=== PATIENT | female | born 1990 ===

== ENCOUNTER 2019-06-12 17:55 | Inpatient (IN) | payer BC, OTHER ==
[2019-06-12] MEDS ORDERED: BUTORPHANOL TARTRATE 1 MG/ML VIAL IVPB ONE (19:01)
[2019-06-12] MEDS ORDERED: PROMETHAZINE HCL 25 MG/1 ML VIAL IVPUSH ONE (19:01)
--- NOTE | 2019-06-12 19:13 | HP ---
Past Medical History - Primary Care Physician PCP:: Lillian Reyes - Admission Chief Complaint: 29yrs , 38.6/7 weeks iup onset LP since 4.00pm strong & regular. she had onset of UC since 8,00AM she went to [facility] L&D where she was supposed to be delievered she was sent home after evaluation due to very early labor ( 1cm dilatation ) . no c/o leaking ,c/o light dark color bleeding History of Present Illness: pnc at [facility],affliated PMD wt gain approx 40 lbs course uneventful . pt declines h/o infection requested chart Chart received reviewed :12/09/18 panel : Apos, , Rubella immune , Varicella immune, measles immune,Hbsag neg , Rpr nr, Hiv nrr, Mumps neg , Varicella zoster neg, Toxoplasmosis igg neg, Iggm neg, Parvovirus B19 Igg pos , Igm neg , TFT , wnl ( tsh, free t4 , freet3 wnl, total T4 elevated, tota T3 uptake lo normal for pregn , random Gl 61, pp nilm, gc/ct neg, Trich neg 05/29/19 : h/h10'4/33.3, Hiv nr, Gbs pos History Source: Patient, Medical Record Limitations to Obtaining History: No Limitations - Past Medical History [employer] CHEMIST: No: Migraine, Seizure Cardiovascular: No: HTN, Murmur Pulmonary: No: Asthma Gastrointestinal: Yes: Constipation. No: GERD Hepatobiliary: No: Hepatitis B Renal/: No: UTI ...: 3 ...Para: 2 (G1 07/27/06nsvd 7' [facility],G2 04/11/09 -8' [facility] ) ...Term: 2 ...LMP: 09/12/18 ... Weeks Gestation by Dates: 38.6 ...EDC by Dates: 06/21/19 ...EDC by Sono: 06/21/19 Heme/Onc: No: Anemia Infectious Disease: Yes: Other (declines) Psych: Yes: Other (declines) Endocrine: Yes: Other (declines) - Past Surgical History Past Surgical History: Yes: None Hx Myomectomy: No Hx Transabdominal Cerclage: No - Alcohol/Substance Use History of Substance Use: reports: None Home Medications - Allergies Allergies/Adverse Reactions: Allergies Allergy/AdvReac Type Severity Reaction Status Date / Time No Known Allergies Allergy Verified 06/12/19 18:50 - Home Medications Home Medications: Ambulatory Orders Prenat 115/Iron Fum/Folic/Dss [ 19 Tablet] 1 each PO DAILY 06/12/19 Physical Exam - Maternity Vital Signs: Selected Entries 06/12/19 18:51 Weight 181 lb Selected Entries 06/12/19 20:04 Temperature 99.2 F Pulse Rate 107 H Respiratory 20 Rate Constitutional: Yes: Well Nourished Eyes: Yes: WNL HENT: Yes: WNL, Normocephalic Neck: Yes: WNL Cardiovascular: Yes: WNL Lungs: Clear to auscultation Breast(s): Yes: WNL - Abdominal Exam/OB Fundal Height: 38 Number of Fetuses: Single Presentation: Vertex Contractions: Yes Regularity: Irregular Intensity: Moderate Monitor Mode: External Heart Rate (range): 150 Heart Rate Location: [facility] Category: I Accelerations: Uniform Decelerations: None - Vaginal Exam/OB Vaginal Bleediing: Bloody Show Speculum Exam: No Dilatation (cm): 3-4 cm Effacement (%): 90 Amniotic Membrane Status: Bulging Presentation: Vertex/Position (exam at 6.30 PM) Station: -2 - Physical Exam Musculoskeletal: Yes: WNL Extremities: Yes: WNL. No: Calf Tenderness Edema: Yes Edema: LLE: 1+, RLE: 1+ Integumentary: Yes: Tattoos Deep Tendon Reflex Grade: Normal +2 ...Motor Strength: WNL Psychiatric: Yes: WNL, Alert, Oriented - Labs Lab Results: Laboratory Tests 06/12/19 06/12/19 06/12/19 19:50 19:50 19:50 WBC 10.6 H Hgb 11.6 Hct 34.7 Plt Count 206 PT with INR 11.60 INR 0.98 PTT (Actin FS) 29.1 Sodium 137 Potassium 4.0 Chloride 107 Carbon Dioxide 24 BUN 9.5 Creatinine 0.6 Random Glucose 89 Calcium 8.9 HIV 1&2 Antibody Screen HIV P24 Antigen Blood Type Antibody Screen 06/12/19 06/12/19 19:50 20:45 WBC Hgb Hct Plt Count PT with INR INR PTT (Actin FS) Sodium Potassium Chloride Carbon Dioxide BUN Creatinine Random Glucose Calcium HIV 1&2 Antibody Screen Negative HIV P24 Antigen Negative Blood Type A POSITIVE Antibody Screen Negative Problem List - Problems (1) with 38 completed weeks gestation Code(s): Z3A.38 - 38 WEEKS GESTATION OF (2) Labor established Code(s): QQN2616 - (3) with care elsewhere Code(s): Z34.90 - ENCNTR FOR SUPRVSN OF NORMAL , UNSP, UNSP TRIMESTER (4) Positive GBS test Code(s): B95.1 - STREPTOCOCCUS, GROUP B, CAUSING DISEASES CLASSD ELSWHR Assessment/Plan 29 yrs , 38.6/7 weeks iup in labor pnc somewhere GBS unknown, waiting for chart , GBS pos rx iv Ampicillin prophylaxis requests epidural for labor analgesia anticipate vaginal delivery
[2019-06-12] MEDS ORDERED: DEXTROSE 5%-LACTATED RINGERS 1,000 ML IV SCH (19:15)
[2019-06-12] MEDS ORDERED: ELECTROLYTE-148 SOLN 1,000 ML IV SCH (19:45)
[2019-06-12 20:22] VITALS: BMI 33.0
[2019-06-12 20:34] LABS: BASO % 0.1 % (0-2.0); EOS % 0.4 % (0-4.5); HEMATOCRIT 34.7 % (32.4-45.2); HEMOGLOBIN 11.6 GM/dL (10.7-15.3); LYMPH % 13.7 % (8-40); MCH 29.2 pg (25.7-33.7); MCHC 33.4 g/dl (32.0-36.0); MEAN CELL VOLUME 87.4 fl (80-96); MEAN PLT VOLUME 10.3 fl (7.5-11.1); MONO % 6.6 % (3.8-10.2); NEUT % 79.2 % (42.8-82.8); PLATELET COUNT 206 K/MM3 (134-434); RBC 3.97 M/mm3 (3.60-5.2); RDW 15.1 % (11.6-15.6); WHITE BLOOD COUNT 10.6 K/mm3 (4.0-10.0)
[2019-06-12 20:42] LABS: BLOOD UREA NITROGEN 9.5 mg/dL (7-18); CALCIUM 8.9 mg/dL (8.5-10.1); CREATININE 0.6 mg/dL (0.55-1.3)
[2019-06-12] MEDS ORDERED: AMPICILLIN SODIUM 2 GM VIAL ONE (20:49)
[2019-06-12 20:54] LABS: INR 0.98 (0.83-1.09); PROTHROMBIN TIME (PATIENT) 11.6 SEC (9.7-13.0)
[2019-06-12 20:56] LABS: ACTIVATED PTT 29.1 SECONDS (25.2-36.5)
[2019-06-12] MEDS ORDERED: NALOXONE HCL 0.4 MG/ML VIAL IVPUSH PRN (22:10)
[2019-06-12] MEDS ORDERED: LIDO 2%/EPI 1:200000 PRESRVFRE (20 ML SDVIAL) ONE (22:13)
[2019-06-12] MEDS ORDERED: FENTANYL/BUPIVACAINE/NS/PF - PCEA - 50 ML DISP.SYRIN EP SCH (22:15)
[2019-06-12] MEDS ORDERED: FENTANYL/BUPIVACAINE/NS/PF - PCEA - 50 ML DISP.SYRIN EP ONE (22:26)
[2019-06-12] MEDS ORDERED: AMPICILLIN SODIUM 1 GM VIAL ONE (23:54)
[2019-06-13] MEDS ORDERED: OXYTOCIN 20 UNITS in 0.9% NS 20 UNIT/1,000 ML INFUS.BAG IV ONE ×2 (00:11→03:39)
[2019-06-13] MEDS ORDERED: LIDOCAINE HCL 1% PRESERVATIVE FREE - 30ML VIAL ONE (00:11)
--- NOTE | 2019-06-13 01:29 | PN ---
Delivery - Delivery Vaginal Delivery: No Problems, Spontaneous (, vx,rop position, terminal light meconium noted,shoulders delievered without difficulty. cord segment cut for cord gas cord around bodyx1 noted. Trivascular cord.. vaginal 1st degree laceration noted with chr catgut #2/0 . , meu done ut intact & empty.bladder catheterized & emptied 300 ml urine . 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
[2019-06-13] MEDS ORDERED: BENZOCAINE 28 GM HEMORRHOIDAL OINTMENT TP PRN (01:47)
[2019-06-13] MEDS ORDERED: WITCH HAZEL 50% (TUCKS) 40 PAD/JAR PAD TP PRN (01:47)
[2019-06-13] MEDS ORDERED: BISACODYL 10 MG SUPP.RECT RC PRN (01:47)
[2019-06-13] MEDS ORDERED: METHYLERGONOVINE MALEATE 0.2 MG/1 ML AMP IM PRN (01:47)
[2019-06-13] MEDS ORDERED: BENZOCAINE 20% 57 GM BOTTLE TP PRN (01:47)
[2019-06-13] MEDS ORDERED: oxyCODONE HCL 5 MG TABLET PO PRN (01:47)
[2019-06-13] MEDS ORDERED: OXYTOCIN 20 UNITS in 0.9% NS 20 UNIT/1,000 ML INFUS.BAG IV SCH (02:00)
[2019-06-13] MEDS ORDERED: IBUPROFEN 600 MG TABLET (FP) PO ONE ×2 (03:00→07:20)
[2019-06-13] MEDS: ACETAMINOPHEN 325 MG TABLET (FP) PO PRN ×3 (03:00→21:34)
[2019-06-13] MEDS: IBUPROFEN 600 MG TABLET (FP) PO PRN ×3 (03:00→21:33)
[2019-06-13] MEDS ORDERED: ACETAMINOPHEN 325 MG TABLET (FP) ONE ×2 (03:00→07:20)
[2019-06-13] MEDS: FERROUS SO4 325 MG TABLET (FP) PO SCH ×2 (08:00→17:39)
[2019-06-13] MEDS: PRENATAL VITAMINS W/ FOLIC ACID TABLET (FP) PO SCH (09:47)
--- NOTE | 2019-06-14 06:59 | PN ---
Post Progress Note - Subjective Subjective: Pain controlled. Lochia less than menses. No fevers/chills. Ambulating. Voiding freely Type of Delivery: Vital Signs: Vital Signs Temperature 98.0 F 06/13/19 22:00 Pulse Rate 83 06/13/19 22:00 Respiratory Rate 18 06/13/19 22:00 Blood Pressure 115/65 06/13/19 22:00 O2 Sat by Pulse Oximetry (%) 99 06/13/19 02:30 Uterus: Yes: Fundus below umbilicus Abdomen/GI: Yes: Abdomen soft, Passing flatus, Tolerating PO Lochia: Yes: Rubra Lochia, amount: Small Extremities: Yes: Calves non-tender Perineum: Yes: Laceration Activity: Ambulating - Labs Labs: CBC WBC 10.6 K/mm3 (4.0-10.0) H 06/12/19 19:50 RBC 3.97 M/mm3 (3.60-5.2) 06/12/19 19:50 Hgb 11.6 GM/dL (10.7-15.3) 06/12/19 19:50 Hct 34.7 % (32.4-45.2) 06/12/19 19:50 MCV 87.4 fl (80-96) 06/12/19 19:50 MCH 29.2 pg (25.7-33.7) 06/12/19 19:50 MCHC 33.4 g/dl (32.0-36.0) 06/12/19 19:50 RDW 15.1 % (11.6-15.6) 06/12/19 19:50 Plt Count 206 K/MM3 (134-434) 06/12/19 19:50 MPV 10.3 fl (7.5-11.1) 06/12/19 19:50 Absolute Neuts (auto) 8.4 K/mm3 (1.5-8.0) H 06/12/19 19:50 Neutrophils % 79.2 % (42.8-82.8) 06/12/19 19:50 Lymphocytes % 13.7 % (8-40) 06/12/19 19:50 Monocytes % 6.6 % (3.8-10.2) 06/12/19 19:50 Eosinophils % 0.4 % (0-4.5) 06/12/19 19:50 Basophils % 0.1 % (0-2.0) 06/12/19 19:50 Nucleated RBC % 0 % (0-0) 06/12/19 19:50 Assessment/Plan 29yo s/p , PPD#1 Routine PP care PO pain control Labs pending Anticipate d/c to home PPD#2 Breana Whitley MD
[2019-06-14 08:20] LABS: BASO % 0.5 % (0-2.0); EOS % 0.9 % (0-4.5); HEMATOCRIT 30.8 % (32.4-45.2); HEMOGLOBIN 10.3 GM/dL (10.7-15.3); LYMPH % 23.2 % (8-40); MCH 29.3 pg (25.7-33.7); MCHC 33.4 g/dl (32.0-36.0); MEAN CELL VOLUME 87.7 fl (80-96); MONO % 7.3 % (3.8-10.2); NEUT % 68.1 % (42.8-82.8); PLATELET COUNT 194 K/MM3 (134-434); RBC 3.51 M/mm3 (3.60-5.2); RDW 15.5 % (11.6-15.6); WHITE BLOOD COUNT 9.8 K/mm3 (4.0-10.0)
[2019-06-14] MEDS: FERROUS SO4 325 MG TABLET (FP) PO SCH ×2 (09:55→17:24)
[2019-06-14] MEDS: PRENATAL VITAMINS W/ FOLIC ACID TABLET (FP) PO SCH (09:55)
[2019-06-14] MEDS ORDERED: SENNOSIDES/DOCUSATE COMBO (SENNA PLUS) TABLET (UD) PO PRN (22:00)
[2019-06-15] MEDS: IBUPROFEN 600 MG TABLET (FP) PO PRN (00:34)
[2019-06-15] MEDS: ACETAMINOPHEN 325 MG TABLET (FP) PO PRN (00:35)
--- NOTE | 2019-06-15 06:54 | DS ---
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 Vital Signs: Vital Signs Temperature 97.5 F L 06/14/19 22:00 Pulse Rate 78 06/14/19 22:00 Respiratory Rate 20 06/14/19 22:00 Blood Pressure 123/69 06/14/19 22:00 O2 Sat by Pulse Oximetry (%) 99 06/13/19 02:30 Constitutional: Yes: Well Nourished, No Distress, Calm Eyes: Yes: WNL, Conjunctiva Clear, EOM Intact HENT: Yes: WNL, Atraumatic, Normocephalic Neck: Yes: WNL, Supple, Trachea Midline Cardiovascular: Yes: WNL, Regular Rate and Rhythm Respiratory: Yes: WNL, Regular, CTA Bilaterally Gastrointestinal: Yes: WNL ...Rectal Exam: Yes: WNL Renal/: Yes: WNL Internal Exam Deferred: Yes ....Post : Yes: Uterus firm, Uterus non-tender, Slight lochia rubra Breast(s): Yes: WNL Musculoskeletal: Yes: WNL Extremities: Yes: WNL Edema: No Integumentary: Yes: WNL Neurological: Yes: WNL, Alert, Oriented ...Motor Strength: WNL Psychiatric: Yes: WNL, Alert, Oriented Labs: CBC, BMP 06/14/19 07:15 06/12/19 19:50 Delivery - Delivery Vaginal Delivery: No Problems, Spontaneous (, vx,rop position, terminal light meconium noted,shoulders delievered without difficulty. cord segment cut for cord gas cord around bodyx1 noted. Trivascular cord.. vaginal 1st degree laceration noted with chr catgut #2/0 . , meu done ut intact & empty.bladder catheterized & emptied 300 ml urine . pr ex mucosa & sphincter intact) Type of Anesthesia: Epidural Episiotomy/Laceration: Vaginal Extension/lac, 1st degree EBL (cc): 350 Delivery, Single - Stages of Labor Date 1st Stage Initiatied: 06/12/19 Time 1st Stage Initiated: 16:00 Date 2nd Stage Initiated: 06/13/19 Time 2nd Stage Initiated: 00:00 Date of Delivery: 06/13/19 Time of Delivery: 00:47 Time Placenta Delivered: 00:52 Placenta: Yes: Spontaneous, Uterine Exploration - Condition of Video Editor/Supervisor Fusing Room Present: No Gender: Male Weight: 7 lb Position: Right, OP (cord around body) Total Hours ROM (Hrs/Mins): 1hr.22 min - 1 Minute Total Score: 9 5 Minutes Total Score: 9 - Feeding Plan Initial Plan: Elected not to breastfeed exclusively throughout hospitalization Discharge Summary Problems reviewed: Yes Reason For Visit: LABOR Current Active Problems Labor established (Acute) Normal spontaneous vaginal delivery (Acute) Positive GBS test (Acute) with 38 completed weeks gestation (Acute) with care elsewhere (Acute) Procedures: Principal: Hospital Course: no complication Plan of Treatment: follow up HR 3 weeks for PP exam Condition: Stable - Instructions Diet, Activity, Other Instructions: Post Instructions DIET: Continue good diet high in protein, calcium, and iron rich foods. Drink at least eight (8) glasses of water daily in addition to other fluids. ___ Regular diet MEDICATIONS: Continue vitamins and iron as previously directed. Motrin and Tylenol may be taken for minor discomfort. ACTIVITY: Mild to moderate exercise may be started in two (2) weeks. Take frequent rest periods. Resume normal activity after six (6) week check up. WOUND CARE OF OPERATIVE SITE: Continue use of perineal bottle until vaginal discharge stops. Keep area clean. Shower daily. Keep abdominal wound dry. Report any drainage or redness to physician. Tub baths, tampons and douches are not permitted for [address] Breast feeding & or Bottle feeding BREAST CARE: (For those that are not ): If engorgement occurs: Wear tight fitting bra. Take Tylenol or Motrin for pain. Apply cold packs (ice in bags to each breast ) FAMILY PLANNING: There are many control alternatives to pursue and they should be discussed at your first office visit. You may resume sexual activity after your six (6) week check up. (Remember, breast feeding is not a contraceptive) NEXT PHYSICIAN APPOINTMENT: Be certain to call for a three (3) week appointment, unless otherwise directed. 2Pkylee Powers , [phone] call for appt . Call Clinic or got to Emergency Dept if you have any of the following: Heavy vaginal bleeding Painful urination Leg pain Unusual odor noted to vaginal bleeding High fever Red streaking noted on breast Referrals: Lillian Reyes MD [Staff Physician] - Disposition: HOME - Home Medications Comprehensive Discharge Medication List: Ambulatory Orders Prenat 115/Iron Fum/Folic/Dss [ 19 Tablet] 1 each PO DAILY 06/12/19 Acetaminophen [Tylenol .Regular Strength -] 650 mg PO Q3H PRN tablet 06/13/19 Ferrous Sulfate [Feosol] 325 mg PO DAILY #30 tab 06/13/19 Ibuprofen [Motrin -] 200 mg PO Q4H PRN tablet 06/13/19 Vitamins (Sjr) - 1 tab PO DAILY #30 tablet 06/13/19 Witch Sofi 50% ([place]) [Tucks Pads -] 1 pad TP PRN PRN pad 06/13/19
[2019-06-15] MEDS: FERROUS SO4 325 MG TABLET (FP) PO SCH (08:37)
[2019-06-15] MEDS: PRENATAL VITAMINS W/ FOLIC ACID TABLET (FP) PO SCH (09:31)
[2019-06-15 10:03] VITALS: BP 116/73; PULSE 74; TEMP 97.7
== END 2019-06-15 11:45 | disposition home or self-care (01) | DRG 807 ==
LOC: JDEL 17:55 → JLDR 18:30 → J3W 06-13 10:40
PROVIDERS: ADMIT Obstetrics & Gynecology; ATTEND Obstetrics & Gynecology
PROC: 0HQ9XZZ Repair Perineum Skin, External Approach (ICD-10-PCS; principal; 2019-06-13)
PROC: 10E0XZZ Delivery of Products of Conception, External Approach (ICD-10-PCS; 2019-06-13)
DX: O99.824 Streptococcus B carrier state complicating childbirth (principal); Z37.0 Single live birth; O70.0 First degree perineal laceration during delivery; Z3A.38 38 weeks gestation of pregnancy
CPT/HCPCS: 36415; 36600; 59409; 80048; 82803; 85025; 85610; 85730; 86593; 86850; 86900; 86901; 87389